=== PATIENT | female | born 1955 | race Caucasian/White ===

== ENCOUNTER 2017-01-03 11:11 | Inpatient (IN) | payer OTHER ==
[~2017-01-03] VITALS: Ht 172.7 cm; Wt 69.0 kg
[2017-01-03 13:27] LABS: PLATELET COUNT 220 x10^3mcL (130-400)
[2017-01-03 13:30] LABS: BASOPHIL % 0 % (0-2); RED CELL DISTRIBUTION WIDTH 19.2 % (11.5-14.5)
[2017-01-03 13:33] LABS: rbc morphology (normal/abnorm) ABNORMAL (NORMAL)
[2017-01-03 13:41] LABS: CALCIUM 8.2 mg/dL (8.5-10.1); CARBON DIOXIDE 23.8 mmol/L (21-32); POTASSIUM SERUM 3.1 mmol/L (3.5-5.1)
[2017-01-03 13:46] LABS: BILIRUBIN TOTAL 0.62 mg/dL (0.20-1.00); TOTAL PROTEIN, SERUM 7.2 g/dL (6.4-8.2)
[2017-01-03 13:48] LABS: ALBUMIN 2.9 g/dL (3.4-5.0)
[2017-01-03] MEDS ORDERED: NYSTATIN100000 U/M PO (15:43)
[2017-01-03] MEDS ORDERED: PROCHLORPERAZIN10 MG PO (15:43)
[2017-01-03 16:22] VITALS: BP 101/48
[2017-01-04 04:10] LABS: AMPHETAMINE QUAL UR NONE DETECTED (NEG <=1000)
[2017-01-04 04:20] LABS: UA SPECIFIC GRAVITY <=1.005 (1.005-1.035); microscopic required? YES; urine erythrocyte NEGATIVE (NEGATIVE)
[2017-01-04 06:07] VITALS: BP 111/63
[2017-01-04 07:47] LABS: BASOPHIL % 0 % (0-2); PLATELET COUNT 212 x10^3mcL (130-400); RED CELL DISTRIBUTION WIDTH 22.3 % (11.5-14.5)
[2017-01-04 07:50] LABS: rbc morphology (normal/abnorm) ABNORMAL (NORMAL)
[2017-01-04 08:02] LABS: CALCIUM 8.6 mg/dL (8.5-10.1); CARBON DIOXIDE 26.6 mmol/L (21-32); CHLORIDE SERUM 105 mmol/L (98-107); CREATININE SERUM 0.9 mg/dL (0.6-1.0); GFR1 > 60 mL/min; GLUCOSE SERUM 107 mg/dL (74-106); MAGNESIUM 2.5 mg/dL (1.8-2.4); SODIUM SERUM 139 mmol/L (136-145)
[2017-01-04 08:15] LABS: IRON 31 ug/dL (50-170); TOTAL IRON BINDING CAPACITY 297 ug/dL (250-450)
[2017-01-04 09:15] VITALS: BP 105/56
[2017-01-04 16:45] VITALS: BP 103/55
[2017-01-04 21:31] VITALS: BP 98/56
[2017-01-05 05:42] VITALS: BP 101/50
[2017-01-05 08:00] LABS: CALCIUM 8.5 mg/dL (8.5-10.1); CARBON DIOXIDE 21.8 mmol/L (21-32); CHLORIDE SERUM 112 mmol/L (98-107); CREATININE SERUM 0.7 mg/dL (0.6-1.0); GFR1 > 60 mL/min; GLUCOSE SERUM 106 mg/dL (74-106); MAGNESIUM 2.2 mg/dL (1.8-2.4); POTASSIUM SERUM 3.8 mmol/L (3.5-5.1); SODIUM SERUM 140 mmol/L (136-145)
[2017-01-05 08:08] LABS: BASOPHIL % 1.1 % (0-2); PLATELET COUNT 230 x10^3mcL (130-400)
[2017-01-05 08:09] LABS: RED CELL DISTRIBUTION WIDTH 21.9 % (11.5-14.5)
[2017-01-05 08:15] LABS: rbc morphology (normal/abnorm) ABNORMAL (NORMAL)
[2017-01-05 08:39] VITALS: BP 95/49
[2017-01-05 09:30] VITALS: BP 95/53
[2017-01-05 13:02] VITALS: BP 108/63
[2017-01-05 17:29] VITALS: BP 148/69
[2017-01-05 21:10] VITALS: BP 106/59
[2017-01-06 05:18] VITALS: BP 110/57
[2017-01-06 06:34] LABS: CALCIUM 8.3 mg/dL (8.5-10.1); CARBON DIOXIDE 24.1 mmol/L (21-32); CHLORIDE SERUM 111 mmol/L (98-107); CREATININE SERUM 0.7 mg/dL (0.6-1.0); GFR1 > 60 mL/min; GLUCOSE SERUM 92 mg/dL (74-106); MAGNESIUM 2.1 mg/dL (1.8-2.4); POTASSIUM SERUM 3.8 mmol/L (3.5-5.1); SODIUM SERUM 139 mmol/L (136-145)
[2017-01-06 07:13] LABS: BASOPHIL % 0.8 % (0-2); RED CELL DISTRIBUTION WIDTH 22.3 % (11.5-14.5)
[2017-01-06 08:13] LABS: PLATELET COUNT 279 x10^3mcL (130-400)
[2017-01-06 08:45] VITALS: BP 117/59
[2017-01-06 16:25] VITALS: BP 125/61
[2017-01-06 21:43] VITALS: BP 109/63
[2017-01-07 06:09] LABS: BASOPHIL % 0.2 % (0-2); PLATELET COUNT 298 x10^3mcL (130-400)
[2017-01-07 06:15] LABS: CALCIUM 8.2 mg/dL (8.5-10.1); CARBON DIOXIDE 21.4 mmol/L (21-32); CHLORIDE SERUM 108 mmol/L (98-107); CREATININE SERUM 0.7 mg/dL (0.6-1.0); GFR1 > 60 mL/min; GLUCOSE SERUM 104 mg/dL (74-106); POTASSIUM SERUM 3.3 mmol/L (3.5-5.1); SODIUM SERUM 141 mmol/L (136-145)
[2017-01-07 06:19] VITALS: BP 107/59
[2017-01-07 06:33] LABS: RED CELL DISTRIBUTION WIDTH 22.6 % (11.5-14.5)
[2017-01-07 08:44] LABS: rbc morphology (normal/abnorm) ABNORMAL (NORMAL); schistocyte (helmet cell) 1+
[2017-01-07 09:11] VITALS: BP 110/60
[2017-01-07 21:10] VITALS: BP 134/65
[2017-01-08 05:21] VITALS: BP 121/62
[2017-01-08 06:12] LABS: BASOPHIL % 0.1 % (0-2); CALCIUM 8.4 mg/dL (8.5-10.1); CARBON DIOXIDE 26.1 mmol/L (21-32); CHLORIDE SERUM 106 mmol/L (98-107); CREATININE SERUM 0.7 mg/dL (0.6-1.0); GFR1 > 60 mL/min; GLUCOSE SERUM 125 mg/dL (74-106); MAGNESIUM 1.9 mg/dL (1.8-2.4); PLATELET COUNT 375 x10^3mcL (130-400); POTASSIUM SERUM 3.5 mmol/L (3.5-5.1); SODIUM SERUM 138 mmol/L (136-145)
[2017-01-08 06:41] LABS: RED CELL DISTRIBUTION WIDTH 22.9 % (11.5-14.5)
[2017-01-08 06:52] LABS: rbc morphology (normal/abnorm) ABNORMAL (NORMAL)
[2017-01-08 10:10] VITALS: BP 106/60
[2017-01-08 16:05] VITALS: BP 118/59
[2017-01-08 22:02] VITALS: BP 109/67
[2017-01-09 05:25] VITALS: BP 132/73
[2017-01-09 06:05] LABS: BASOPHIL % 1.2 % (0-2)
[2017-01-09 06:22] LABS: CALCIUM 8.2 mg/dL (8.5-10.1); CARBON DIOXIDE 25.7 mmol/L (21-32); CHLORIDE SERUM 106 mmol/L (98-107); CREATININE SERUM 0.7 mg/dL (0.6-1.0); GFR1 > 60 mL/min; GLUCOSE SERUM 108 mg/dL (74-106); MAGNESIUM 1.9 mg/dL (1.8-2.4); POTASSIUM SERUM 3.5 mmol/L (3.5-5.1); SODIUM SERUM 140 mmol/L (136-145)
[2017-01-09 06:24] LABS: PLATELET COUNT 425 x10^3mcL (130-400); RED CELL DISTRIBUTION WIDTH 22.8 % (11.5-14.5)
[2017-01-09 07:29] LABS: ovalocyte/elliptocyte 1+; rbc morphology (normal/abnorm) ABNORMAL (NORMAL); schistocyte (helmet cell) 1+
[2017-01-09 07:50] VITALS: BP 133/59
[2017-01-09 17:58] VITALS: BP 124/63
[2017-01-09 21:52] VITALS: BP 140/70
[2017-01-10 05:24] VITALS: BP 116/65
[2017-01-10 06:27] LABS: CALCIUM 8.7 mg/dL (8.5-10.1); CARBON DIOXIDE 25.7 mmol/L (21-32); CHLORIDE SERUM 104 mmol/L (98-107); CREATININE SERUM 0.7 mg/dL (0.6-1.0); GFR1 > 60 mL/min; GLUCOSE SERUM 105 mg/dL (74-106); POTASSIUM SERUM 3.7 mmol/L (3.5-5.1); SODIUM SERUM 136 mmol/L (136-145)
[2017-01-10 07:24] LABS: BASOPHIL % 0.7 % (0-2)
[2017-01-10 07:31] LABS: PLATELET COUNT 531 x10^3mcL (130-400); RED CELL DISTRIBUTION WIDTH 23.3 % (11.5-14.5)
[2017-01-10 10:00] VITALS: BP 136/80
[2017-01-10 16:47] VITALS: Ht 172.7 cm; Wt 69.0 kg
[2017-01-10 17:07] VITALS: BP 124/72
[2017-01-10] MEDS ORDERED: FLA500 PO (17:41)
[2017-01-10] MEDS ORDERED: ACETAMINOPHEN-H1 TA1 PO (17:41)
[2017-01-10] MEDS ORDERED: CIPRO500 MG PO (17:41)
[2017-01-10 21:49] VITALS: BP 103/72
[2017-01-11 06:19] LABS: BASOPHIL % 0.6 % (0-2)
[2017-01-11 06:20] LABS: CALCIUM 8.4 mg/dL (8.5-10.1); CARBON DIOXIDE 25.1 mmol/L (21-32); CHLORIDE SERUM 105 mmol/L (98-107); CREATININE SERUM 0.7 mg/dL (0.6-1.0); GFR1 > 60 mL/min; GLUCOSE SERUM 125 mg/dL (74-106); MAGNESIUM 2.1 mg/dL (1.8-2.4); POTASSIUM SERUM 3.5 mmol/L (3.5-5.1); SODIUM SERUM 138 mmol/L (136-145)
[2017-01-11 06:22] VITALS: BP 104/68
[2017-01-11 07:05] LABS: RED CELL DISTRIBUTION WIDTH 24.4 % (11.5-14.5)
[2017-01-11 07:06] LABS: PLATELET COUNT 603 x10^3mcL (130-400)
[2017-01-11 09:49] VITALS: BP 119/66
[2017-01-11 13:45] VITALS: BP 119/66
[2017-01-11 17:10] VITALS: BP 135/67
== END 2017-01-11 19:25 | disposition home or self-care (01) | DRG 221 ==
LOC: ED 11:11 → DU 15:16 → MU 15:16 → DU 16:26 → MU 16:45
PROVIDERS: Emergency Medicine; Internal Medicine; ADMIT Internal Medicine Pulmonary Disease
PROC: 0DBF4ZZ Excision of Right Large Intestine, Percutaneous Endoscopic Approach (ICD-10-PCS; principal; 2017-01-03)
PROC: 0DBF8ZX Excision of Right Large Intestine, Via Natural or Artificial Opening Endoscopic, Diagnostic (ICD-10-PCS; 2017-01-05)
PROC: 0DB68ZZ Excision of Stomach, Via Natural or Artificial Opening Endoscopic (ICD-10-PCS; 2017-01-05 07:15)
PROC: 0DB98ZX Excision of Duodenum, Via Natural or Artificial Opening Endoscopic, Diagnostic (ICD-10-PCS; 2017-01-05 07:15)
PROC: 0DBH8ZX Excision of Cecum, Via Natural or Artificial Opening Endoscopic, Diagnostic (ICD-10-PCS; 2017-01-05 07:15)
DX: C18.0 Malignant neoplasm of cecum (principal); K92.2 Gastrointestinal hemorrhage, unspecified; D49.0 Neoplasm of unspecified behavior of digestive system; D64.9 Anemia, unspecified; E87.6 Hypokalemia; Q27.33 Arteriovenous malformation of digestive system vessel
CPT/HCPCS: 43235; 45378; 82962; 83880; 87046; 87046-59; J0744; J1170; J1200; J1610; J1650; J1885; J2250; J2310; J2405; J2550; J2704; J2710; J2765; J3010; J3490; J7030; J7042; J7050; J7120; P9016; Q9966; Q9967

== ENCOUNTER 2017-03-30 13:24 | Emergency (ER) | payer OTHER ==
[~2017-03-30 13:24] MED LIST: ACETAMINOPHEN-H1 TA1 PO; CIPRO500 MG PO; FLA500 PO; NYSTATIN100000 U/M PO; PROCHLORPERAZIN10 MG PO
[2017-03-30 16:08] VITALS: BP 113/67
== END 2017-03-30 16:08 | disposition home or self-care (01) ==
LOC: ED 13:24
DX: T63.481A Toxic effect of venom of other arthropod, accidental (unintentional), initial encounter (principal); M79.7 Fibromyalgia; Y92.89 Other specified places as the place of occurrence of the external cause